=== PATIENT | female | born 1970 | race Caucasian/White ===

== ENCOUNTER → 2024-06-07 06:21 | Day surgery (SDC) | payer BC, SELFPAY | LOC: GI 06:21 | PROVIDERS: ATTENDING PHYSICIAN Internal Medicine Gastroenterology | DX: Z12.11 Encounter for screening for malignant neoplasm of colon (principal); Z87.19 Personal history of other diseases of the digestive system; K64.8 Other hemorrhoids | CPT/HCPCS: G0105 ==

== ENCOUNTER → 2024-12-29 14:22 | Outpatient (REF) | payer BC, SELFPAY | LOC: WDC 14:22 | PROVIDERS: ATTENDING PHYSICIAN Obstetrics & Gynecology; FAMILY PHYSICIAN Family Medicine | DX: Z12.31 Encounter for screening mammogram for malignant neoplasm of breast (principal) | CPT/HCPCS: 77063; 77067 ==

== ENCOUNTER 2025-06-15 12:49 | Emergency (ER) | payer BC, SELFPAY ==
[2025-06-15] VITALS (10 sets, daily range): BP systolic 105–199; BP diastolic 75–101; BMI 25.9
--- NOTE | 2025-06-15 14:43 | ED.GENMED ---
History of Present Illness
General
Chief Complaint: Blood Pressure Problem
Source: patient
Time Seen by Provider: 06/15/25 14:19
History of Present Illness
History of Present Illness:
55-year-old female who incidentally checks her blood pressure about once a week and it is typically normal. Today she woke up feeling her usual self. At around 11:45 AM she was exercising, lifting about 15 pound weights over her head when she
started to feel dyspneic and dizzy. She stopped the exercise and checked her blood pressure and it was noted to be markedly elevated. She checked it several more times, and it was still elevated which prompted her visit here. On the way here she
started to feel a little 'full' in her chest without radiation or pleuritic quality. She is unsure is related to feeling anxious. This is still present. 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
burning mouth syndrome. She denies calf swelling, recent immobilization, recent trauma, pleuritic chest pain. She does have a family history of early CAD and has been under the care of a ear nose and throat specialist without any findings.
Past History
Past History
ED Past Medical History: None
ED Past Surgical History: None
Social History
Tobacco: Non-smoker
Alcohol: Occasional
Drug: None
Personal:
Living: with family
Phy Exam
Physical Exam
Physical Exam:
GENERAL: Alert , in no apparent distress
EYE: pupils equal and reactive
NECK: Supple, no significant adenopathy.
ENT: o/p clr, mmm.
CARDIAC: Regular rate and rhythm .
LUNGS: Clear breath sounds bilaterally, no acute respiratory distress, no wheezes/rales/rhonchi
ABDOMEN: Soft, without focal tenderness, no r/g, no cvat
NEUROLOGICAL: Alert and oriented, no focal neuro deficits
SKIN: Warm and dry, skin intact.
MUSCULOSKELETAL: No edema, well perfused.
PSYCH: Normal and appropriate interaction.
Course
Orders/Labs/Results
Orders:
Orders
06/15/25 12:56
EKG [Electrocardiogram (*1)] Urgent
Reason for Study: Hypertension, Benign
EKG- Treatment ONCE
06/15/25 14:36
Cardiac Monitoring- Treatment ONCE
06/15/25 14:44
Complete Blood Count/No Diff Urgent
Comprehensive Metabolic Panel Urgent
D-Dimer Urgent
Troponin I Urgent
06/15/25 17:52
Troponin I Urgent
06/15/25 14:44
06/15/25 14:44
Vital Signs
Initial and Last Documented VS:
Initial Vital Signs
Temp Pulse Resp BP Pulse Ox
98.7 F 89 20 199/101 100
06/15/25 12:53 06/15/25 12:53 06/15/25 12:53 06/15/25 12:53 06/15/25 12:53
Last Documented Vital Signs
Temp Pulse Resp BP Pulse Ox
98.5 F 57 16 140/88 100
06/15/25 18:45 06/15/25 18:45 06/15/25 18:45 06/15/25 18:45 06/15/25 18:45
*Pulse Oximetry
SaO2: 99
Oxygen Mode of Delivery: Room air
Patient hypoxic: no
*Critical Care Note
Total Time (30-74mins, 75-104mins- exclusive of procedures): Not Applicable
Update Note
Update Note:
Patient presents to the Emergency Department with __dizziness and elevated blood pressure
Number and Complexity of Problems Addressed at the Encounter
� Chronic conditions affecting care:
� Acute Exacerbation and/or Progression of Chronic Illness:
� Differential Diagnosis includes: But not limited to undiagnosed hypertension, hypertensive episode, PE, ACS, etc. etc.
Amount and/or Complexity of Data to be Reviewed and Analyzed
� I performed an independent evaluation of and my interpretation is:
EKG: Read by me, normal sinus rhythm with PVC, LAD, no acute ischemia. Patient has Q waves noted in V1 and V2.
CT:
Xrays:
Laboratory Studies: Generally unremarkable, troponin x 2 unremarkable
Other:
� Review of other/old records reveals:
� Clinical information was obtained by an independent historian:
� Prescriptions/Medications Considered but not given:
� Further testing considered but not performed:
Risk of Complications and/or Morbidity or Mortality of Patient Management
� Social determinants of health affecting care:
� Discussion with other providers (PCP, Hospitalists, Consultants, etc):
� Escalation of care including admission/observation vs risk of discharge considered: Patient remains asymptomatic here, blood pressure spontaneously came to near normal. Highly doubt acute cardiovascular event given
unremarkable workup here. Patient does have cardiology appointment in place and I strongly recommended that she keep that appointment as well as discussed with her reasons to return the emergency department. She remains asymptomatic and
well-appearing.
ED Attending Note
-
Portions of this chart may have been created with voice recognition software.� Occasional wrong word or��sound alike� substitutions may have occurred due to the inherent limitations of voice recognition software.
Discharge Plan
Departure
Patient Disposition: Home (Routine Discharge)
Date of Disposition: 06/15/25
Time of Disposition: 18:47
Patient with high blood pressure during this ER visit?: Yes
Condition: Good
Discharge Problem:
Elevated blood pressure
Instructions: High Blood Pressure (DC)
Prescriptions:
No Action
No Current Medications
0
Referrals:
Eugenie Tuttle MD [Family Provider, [facility]]
Activity Restrictions/Additional Instructions:
PLEASE SEE YOUR INSTALLATION DRAFTER SCHEDULED. IF YOU DEVELOP CHEST PAIN, TROUBLE BREATHING, SEVERE HEADACHE, DIZZINESS, VOMITING, OR OTHER WORRISOME SIGNS, GO TO THE ER IMMEDIATELY!
Interventions
Interventions:
*Risk Screen - Suicide Last Done: 06/15/25 12:53
*General Assessment Last Done: 06/15/25 12:53
*Neglect/Abuse Screening Last Done: 06/15/25 12:53
*ED- Fall Risk Assessment Last Done: 06/15/25 13:35
*ED COVID-19 Vaccine History Last Done: 06/15/25 13:35
ED- Cardiac Assessment Last Done: 06/15/25 13:35
ED- Neurological Assessment Last Done: 06/15/25 13:35
ED- Pulmonary Assessment Last Done: 06/15/25 13:35
Discharge Date and Time
Print Language: GREEK
[2025-06-15 14:52] LABS: Hematocrit 38.3 % (37.0-47.0); Hemoglobin 13.1 g/dL (12.0-16.0); Mean Corp Hgb Conc. 34.2 g/dL (33.0-37.0); Mean Corpuscular Volume 86.1 fL (81.0-99.0); Platelet Count 193 10^3/uL (130-400); Red Cell Dist. Width 12.6 % (11.5-14.5)
[2025-06-15 15:05] LABS: D-Dimer 0.28 ug/mlFEU (0.00-0.50)
[2025-06-15 15:06] LABS: ALT (SGPT) 16 U/L (0-35); AST (SGOT) 30 U/L (14-36); Albumin 4.5 g/dl (3.5-5.0); Alkaline Phosphatase 62 U/L (38-126); Blood Urea Nitrogen 16 mg/dl (7-17); Calcium 9.5 mg/dl (8.4-10.2); Carbon Dioxide 27 mmol/L (22-30); Chloride 103 mmol/L (98-107); Estimated Creatinine Clearance 91 ml/min; Glucose 93 mg/dl (70-99); Potassium 4.9 mmol/L (3.5-5.1); Sodium 135 mmol/L (135-145); Total Protein 7.1 g/dl (6.3-8.2); eGFR > 60.00
[2025-06-15 15:14] LABS: Troponin I < 0.012 ng/ml
[2025-06-15 18:34] LABS: Troponin I < 0.012 ng/ml
== END 2025-06-15 18:59 | disposition home or self-care (01) ==
LOC: EMR 12:49
PROVIDERS: EMERGENCY PHYSICIAN Emergency Medicine; FAMILY PHYSICIAN Family Medicine
DX: I10 Essential (primary) hypertension (principal); R06.00 Dyspnea, unspecified; Z79.890 Hormone replacement therapy; Z82.49 Family history of ischemic heart disease and other diseases of the circulatory system
CPT/HCPCS: 99283; 80053; 84484; 85027; 85379; 93005

== ENCOUNTER → 2025-06-23 08:02 | Outpatient (REF) | payer BC, SELFPAY | LOC: DHVS 08:02 | PROVIDERS: ATTENDING PHYSICIAN Internal Medicine Cardiovascular Disease; FAMILY PHYSICIAN Family Medicine | DX: I10 Essential (primary) hypertension (principal) | CPT/HCPCS: 36415; 82088; 82384; 83835; 93975 ==

== ENCOUNTER → 2025-06-30 07:59 | Outpatient (REF) | payer BC, SELFPAY | LOC: HWRCS 07:59 | PROVIDERS: ATTENDING PHYSICIAN Internal Medicine Cardiovascular Disease; FAMILY PHYSICIAN Family Medicine | DX: I10 Essential (primary) hypertension (principal); Z82.49 Family history of ischemic heart disease and other diseases of the circulatory system | CPT/HCPCS: 93306 ==

== ENCOUNTER → 2025-07-04 13:08 | Outpatient (REF) | payer BC, SELFPAY | LOC: RCS 13:08 | PROVIDERS: ATTENDING PHYSICIAN Internal Medicine Cardiovascular Disease; FAMILY PHYSICIAN Family Medicine | DX: I10 Essential (primary) hypertension (principal); Z82.49 Family history of ischemic heart disease and other diseases of the circulatory system | CPT/HCPCS: 93017; 93350 ==

== ENCOUNTER → 2025-07-15 07:29 | Outpatient (REF) | payer BC, SELFPAY ==
[2025-07-18 07:50] LABS: Aldosterone/Renin Activ Ratio 10.2 ratio (<=25.0); Renin Activity Results 1.5 ng/mL/hr
== END ==
LOC: REG 07:29
PROVIDERS: ATTENDING PHYSICIAN Internal Medicine Cardiovascular Disease; FAMILY PHYSICIAN Family Medicine
DX: E78.2 Mixed hyperlipidemia (principal); I10 Essential (primary) hypertension
CPT/HCPCS: 36415; 82088; 84244

== ENCOUNTER → 2025-08-23 13:12 | Outpatient (REF) | payer BC, SELFPAY | LOC: HWRAD 13:12 | PROVIDERS: ATTENDING PHYSICIAN Nurse Practitioner Family; FAMILY PHYSICIAN Family Medicine | DX: R10.20 Pelvic and perineal pain unspecified side (principal) | CPT/HCPCS: 76830; 76856 ==

== ENCOUNTER → 2025-09-26 07:20 | Outpatient (REF) | payer BC, SELFPAY | LOC: HWRAD 07:20 | PROVIDERS: ATTENDING PHYSICIAN Family Medicine | DX: Z00.00 Encounter for general adult medical examination without abnormal findings (principal); E04.9 Nontoxic goiter, unspecified | CPT/HCPCS: 76536 ==